=== PATIENT | female | born 1945 | race Caucasian/White ===

== ENCOUNTER 2019-12-26 17:06 | Inpatient (IN) | payer OTHER ==
[2019-12-26] MEDS ORDERED: AZITHROMYCIN IV 500 MG in NA CHLORIDE 0.9% 250 ML IVPB ONE (18:00)
[2019-12-26 18:23] VITALS: BMI 19.4
[2019-12-26] MEDS: NA CHLORIDE 0.9% 1,000 ML IV SCH (19:00)
[2019-12-26] MEDS: CEFTRIAXONE/SWI 1gm 1 GM/10 ML SYR IVP SCH (19:00)
[2019-12-26] MEDS ORDERED: PNEUMOCOCCAL VACCINE 0.5 ML IMVAC ONE (20:00)
[2019-12-26] MEDS ORDERED: ENOXAPARIN 40 MG/0.4 ML SQ ONE (20:09)
[2019-12-26] MEDS: gemfibroziL 600 MG TAB PO SCH (20:31)
[2019-12-26] MEDS: AMLODIPINE 5 MG TAB PO SCH (20:31)
[2019-12-26] MEDS: GUAIFENESIN/CODEINE 5ML UCUP PO PRN (22:33)
--- NOTE | 2019-12-27 01:55 | HP ---
Date of Admission: 12/26/2019 Chief Complaint: Feeling weak. History Of Present Illness: This is a 74-year-old very pleasant female patient who came into office yesterday with her and reported that on December 06, 2019, she started to have fever, chills, poor appetite, and [facility] as her condition got worse on December 11, 2019. Her temperature at that time was 103 degrees Fahrenheit. She had a negative urinalysis done at [facility] and she was sent to hospital for CBC and chemistry profile and mono test. All the test came back negative except her white blood cell count was 15, and she was prescribed cephalexin 500 mg 3 times a day for 10 days by physician from [facility] and she took it for about 7 days and stopped taking it because of side effect of nausea, vomiting, and diarrhea. After she stopped the antibiotic, the side effects resolved. Patient denies any more fever, but continues to feel really tired and having some dry cough. She feels short of breath when she does any exertion. After I evaluated her yesterday at the office, I was concerned about possibility of pneumonia on basis of clinical exam, so outpatient blood work and chest x-ray was done yesterday, and today, patient was admitted to hospital with left lower lobe pneumonia and white count was 17,000. I saw her this evening after her admission to the hospital. Her was with her at bedside. Allergies: ALLERGY TO SULFA CAUSING HIVES. CIPRO CAUSED SIDE EFFECT OF DIARRHEA. Review of Systems: Constitutional: As mentioned above. Respiratory: As mentioned above. All other systems reviewed and negative. Medications: List reviewed. 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 She had recurrence in 2003 and she is status post allogeneic stem cell transplant. Prior history of DVT of left arm in 1997, right leg in 2005; factor V Leiden deficiency. Past medical history also significant for depression. Past Surgical History: Cholecystectomy. Family History: Father had lung cancer. Mother; hypertension, hyperlipidemia. Sister with hypertension. Social History: Negative for smoking. Alcohol, she has 2 glasses of wine few times a week. Physical Examination: Vital Signs: Height 5 feet 7 inches, weight 124 pounds. Temperature 97.9, pulse 16, respiratory rate 16, blood pressure 127/71, oxygen saturation 97%. General: Awake, alert, oriented, not in distress. HEENT: Head atraumatic, normocephalic. Conjunctivae nonerythematous. Sclerae white. Mouth, no thrush or edema noted. Ears/Nose, no mass, lesion, discharge noted. Neck: Supple. No JVD, lymph nodes, bruit, thyromegaly noted. Lungs: Presence of diminished air entry in lower half of left lung field with some crackles. Heart: Normal heart sounds, no murmur or gallop. Abdomen: Soft, bowel sounds normal. No guarding, rigidity, tenderness, mass, hepatosplenomegaly, distention, or bruit noted. Extremities: No leg edema. No calf tenderness. Skin: No rash, ulcer, cellulitis. Lymphatics: No lymph node enlargement in neck, supraclavicular, infraclavicular region. Neuro: No focal neurological deficit. Chest: Unremarkable. External Genitalia: Deferred. Rectal: Deferred. Laboratory Data: Yesterday's chest x-ray shows moderate amount of pneumonia in left lower lobe. Yesterday, white count 17.2, hemoglobin 11.8, platelets 176. Sodium 136, potassium 4.1, chloride 100, bicarb 28, BUN 16, creatinine 0.84, glucose 181. SGOT 60, SGPT 71, alkaline phosphatase 150. Impression: 1. Pneumonia. 2. Anemia, unspecified. 3. Hypertension. 4. Abnormal liver function test. 5. Mixed hyperlipidemia. 6. Sleep-related leg cramps. 7. Gastroesophageal reflux disease. 8. Abnormal liver function test. 9. Impaired fasting glucose. 10. Depression. Plan: Admit patient to hospital for further evaluation and management of this problem. Patient is appropriate for inpatient and is expected to spend 2 midnights in hospital. Home medications will be continued per order. We will give DVT prophylaxis using Lovenox starting tonight. Patient will be given IV fluid and IV antibiotic, which is ceftriaxone and azithromycin. We will repeat blood work tomorrow morning. Repeat chest x-ray day after tomorrow and possible discharge to go home either on or Wednesday provided pneumonia shows improvement and depending on her overall clinical condition. Details and plan of treatment discussed with her. OMERO/ARVIND Voice ID: [id number] MTDD
[2019-12-27] MEDS: GUAIFENESIN/CODEINE 5ML UCUP PO PRN ×2 (03:50→20:51)
[2019-12-27 04:40] LABS: Absolute Lymphocytes (CBC) 1.5 K/uL (0.7-4.9); Basophils % 0.3 % (0-1.3); Hematocrit 30.8 % (36.0-45.0); Lymphocytes % 11.1 % (15.3-44.8); MPV 8.8 fL (7.6-11.3); RBC Red Blood Cell Count 3.18 M/uL (3.86-4.86)
[2019-12-27 04:58] LABS: BUN Blood Urea Nitrogen 12 mg/dL (7-18); Bicarbonate 30 mmol/L (21-32); Glucose Level 114 mg/dL (74-106); Magnesium 2.2 mg/dL (1.8-2.4); Potassium 3.7 mmol/L (3.5-5.1); Sodium Level 138 mmol/L (136-145)
[2019-12-27] MEDS: LEVOTHYROXINE SOD 0.05 MG TABLET PO SCH (05:11)
[2019-12-27] MEDS: AMLODIPINE 5 MG TAB PO SCH ×3 (08:11→20:52)
[2019-12-27] MEDS: CEFTRIAXONE/SWI 1gm 1 GM/10 ML SYR IVP SCH ×2 (08:13→20:51)
[2019-12-27] MEDS: NA CHLORIDE 0.9% 1,000 ML IV SCH ×2 (08:13→20:53)
[2019-12-27] MEDS: gemfibroziL 600 MG TAB PO SCH ×2 (08:15→20:51)
[2019-12-27] MEDS: BENZONATATE 100 MG CAP PO PRN ×2 (12:28→18:52)
[2019-12-27] MEDS: ENOXAPARIN 40 MG/0.4 ML SQ SCH (16:04)
[2019-12-28] MEDS: LOPERAMIDE HCL 2 MG CAPSULE PO PRN ×4 (00:05→18:00)
[2019-12-28] MEDS: BENZONATATE 100 MG CAP PO PRN ×3 (00:05→20:44)
[2019-12-28] MEDS: GUAIFENESIN/CODEINE 5ML UCUP PO PRN ×2 (04:28→13:12)
[2019-12-28] MEDS: LEVOTHYROXINE SOD 0.05 MG TABLET PO SCH (06:22)
--- NOTE | 2019-12-28 08:35 | RAD REPORT ---
EXAM DESCRIPTION: Odilon Pa And Lat (2 Views)12/28/2019 8:25 am CLINICAL HISTORY: Cough COMPARISON: December 25, 2019 FINDINGS: No significant change in the mid and lower opacity left hemithorax with volume loss. The right lung appears clear. Heart is normal size IMPRESSION: No significant change in the left hemithorax opacity. Most of this likely represents lef t lower lobe atelectasis. There may be a component of pneumonia/mass as well. CT chest would be helpf ul for further evaluation
[2019-12-28] MEDS: AMLODIPINE 5 MG TAB PO SCH ×2 (09:30→20:45)
[2019-12-28] MEDS: gemfibroziL 600 MG TAB PO SCH ×2 (09:30→20:44)
[2019-12-28] MEDS: CEFTRIAXONE/SWI 1gm 1 GM/10 ML SYR IVP SCH ×2 (09:30→20:43)
[2019-12-28] MEDS: NA CHLORIDE 0.9% 1,000 ML IV SCH (09:30)
--- NOTE | 2019-12-28 10:34 | PN ---
Date of Progress Note: 12/27/2019 Subjective: Patient was seen in the morning for followup. She had a lot of cough all day and during nighttime, but the last hour or so prior to my arrival to see her in the morning, her cough got bett er. She is afraid of some diarrhea as she normally gets diarrhea with antibiotic use. She has signi ficant generalized weakness sitting in the bed to try to examine her. She required assistance. Objective: Vital Signs: Reviewed. HEENT: Unremarkable. Lungs: Right-side clear to auscultation except minimum basal rales. Left side has some rales noted in the left lower lung region. Decreased air entry in lower half of the left lung field unchanged fr om yesterday. Heart: Sounds normal. Abdomen: Soft. Bowel sounds normal. No guarding, rigidity, tenderness, or distention. Extremities: No leg edema. Laboratory Data: Reviewed. White count is down to 13,000 from 17,000. The rest of the CBC and chem istry results reviewed. Impression: 1.Pneumonia. 2.Hypertension. 3.Generalized weakness. Plan: We will go ahead and continue current antibiotics. Consult Physical Therapy to help ambulate the patient. Continue current medication, which is Robitussin AC per order and we will add Tessalon. We will repeat chest x-ray tomorrow. Depending on chest x-ray results and the patient's condition, we will decide if she is ready for discharge tomorrow or not, but if not tomorrow, it should probably happen in the next couple of days. OMERO/MODL Voice ID: [id number] Report ID: [id number]
--- NOTE | 2019-12-28 11:17 | RAD REPORT ---
EXAM DESCRIPTION: CT - Thorax Wo Con - 12/28/2019 9:53 am CLINICAL HISTORY: Pneumonia COMPARISON: December 28 and December 25 chest examinations TECHNIQUE: Axial 5 mm thick images of the chest were obtained without IV contrast. All CT scans are performed using dose optimization technique as appropriate and may include automated exposure control or mA/KV adjustment according to patient size. FINDINGS: Right lung field is clear of mass or infiltrate. Right lung field is hyper expanded. Infil trate and/ or partial atelectasis changes are present along the posterior aspect of the left upper lo be. There is complete opacification of the left lower lobe. Left lower lobe bronchial tree is occlude d by mucous or inflammatory debris. No air bronchograms in the left lower lobe. No large left pleural effusion. No right pleural fluid. No pleural based mass. No pneumothorax. No abnormal mediastinal or hilar masses or lymphadenopathy seen. No gross aortic or pulmonary artery finding suspected. Assessment is limited in the absence of IV contrast. No pericardial thickening or effusion. No chest wall mass or abnormal axillary lymphadenopathy. IMPRESSION: There is complete opacification of the left lower lobe including the bronchial tree. Thi s is most typically pneumonia with mucus and inflammatory debris filling the bronchial tree. An occul t malignant process is not excluded and continued follow-up is needed until clearing. Partial atelectasis of the left upper lobe. There is questionable very minimal left upper lobe infilt rate. Right lung field is clear. There is hyperexpansion of the right hemithorax along with a right to left mediastinal shift due to the left-side volume loss changes. No mediastinal or hilar mass is suspected. Left hilum is partially obscured by the left lower lobe op acification.
[2019-12-28] MEDS ORDERED: AZITHROMYCIN IV 500 MG in NA CHLORIDE 0.9% 250 ML IVPB ONE (15:00)
[2019-12-28] MEDS: ALBUTEROL 2.5 MG/3 ML NEB SOL NEB SCH ×2 (15:05→19:53)
[2019-12-28] MEDS: ENOXAPARIN 40 MG/0.4 ML SQ SCH (18:00)
--- NOTE | 2019-12-28 23:46 | PN ---
Date of Progress Note: 12/28/2019 Subjective: Patient was seen this morning for followup. She was feeling better today than yesterday . She did ambulate yesterday. Appetite is improving. She still has lot of weakness, but overall sh e has improved in last 24 hours. Objective: Vital Signs: Reviewed. HEENT: Unremarkable. Lungs: Clear to auscultation to right side; left side, diminished to absent breath sounds in lower h lisa of left lung field. Not using accessory muscles of respiration. Heart: Heart sounds normal. Abdomen: Soft, bowel sounds normal. No guarding, rigidity, tenderness, or distention. Extremities: No leg edema. Laboratory Data: Chest x-ray done today shows pneumonia in left lower lobe with pleural effusion. C AT scan of the chest was done per recommendation from radiologist to rule out any underlying lung mas s and it does show consolidation in left lower lung consistent with pneumonia and air bronchogram and pleural effusion. There is no evidence of any definite mass. Impression: 1.Pneumonia. 2.Hypertension. Plan: We will go ahead and continue ceftriaxone. The patient received 1 dose of azithromycin day be fore yesterday, but upon further review, it appears that she did not receive dose yesterday, so I hav e ordered azithromycin 500 mg IV today and then 250 mg IV daily from tomorrow. We will go ahead and continue current dose of ceftriaxone. I have ordered nebulizer treatment with albuterol and chest pe rcussion with nebulizer treatment. Continue Lovenox for DVT prophylaxis and I will see her tomorrow for follo wup. OMERO/MODL Voice ID: [id number] Report ID: [id number]
[2019-12-29] MEDS: LOPERAMIDE HCL 2 MG CAPSULE PO PRN ×3 (01:46→15:16)
[2019-12-29] MEDS: BENZONATATE 100 MG CAP PO PRN ×2 (01:47→09:38)
[2019-12-29] MEDS: ALBUTEROL 2.5 MG/3 ML NEB SOL NEB SCH ×4 (02:10→20:52)
[2019-12-29] MEDS: LEVOTHYROXINE SOD 0.05 MG TABLET PO SCH (06:38)
[2019-12-29 07:37] LABS: Absolute Lymphocytes (CBC) 1.3 K/uL (0.7-4.9); Basophils % 0.7 % (0-1.3); Hematocrit 30.7 % (36.0-45.0); Lymphocytes % 12.2 % (15.3-44.8); MPV 8.4 fL (7.6-11.3); RBC Red Blood Cell Count 3.13 M/uL (3.86-4.86)
[2019-12-29 07:47] LABS: BUN Blood Urea Nitrogen 8 mg/dL (7-18); Bicarbonate 30 mmol/L (21-32); Glucose Level 118 mg/dL (74-106); Magnesium 2.2 mg/dL (1.8-2.4); Potassium 3.1 mmol/L (3.5-5.1); Sodium Level 140 mmol/L (136-145)
[2019-12-29] MEDS: AZITHROMYCIN IV 250 MG in NA CHLORIDE 0.9% 250 ML IVPB SCH (09:00)
[2019-12-29] MEDS: AMLODIPINE 5 MG TAB PO SCH ×2 (09:37→20:29)
[2019-12-29] MEDS: gemfibroziL 600 MG TAB PO SCH ×2 (09:37→20:29)
[2019-12-29] MEDS: POTASSIUM CL SA 10 MEQ TAB PO SCH ×2 (09:37→20:29)
[2019-12-29] MEDS: CEFTRIAXONE/SWI 1gm 1 GM/10 ML SYR IVP SCH ×2 (09:38→20:28)
--- NOTE | 2019-12-29 14:39 | PN ---
Date of Progress Note: 12/29/2019 Subjective: She was noted to be ambulating in the hallway. She was a little unsteady on her feet wh ile she was walking with her , but overall feels a lot better today than last few days. Still has little diarrhea, which is well controlled with p.r.n. use of Imodium. Objective: Vital Signs: Reviewed. HEENT: Unremarkable. Lungs: Clear to auscultation on the right side. Left side diminished air entry in the left lower roxanne ng field with some crackles. This has improved on today's examination. Heart: Sounds normal. Abdomen: Soft. Bowel sounds normal. No guarding, rigidity, tenderness, or distention. Extremities: No leg edema. Laboratory Data: White count 10.4, hemoglobin 10.5 platelets 131. Sodium 140, potassium 3.1, chlori de 104, bicarb 30, BUN 8, creatinine 0.54, glucose 118, magnesium 2.2. Impression: 1.Pneumonia. 2.Hypokalemia. 3.Anemia. 4.Hypertension. Plan: We will continue current antibiotic which is ceftriaxone and azithromycin, nebulizer treatment , chest percussion. Replace potassium per order, and we will repeat potassium level tomorrow. We will repeat chest x-ray tomorrow and possible discharge to go home tomorrow depending on patient's co ndition and chest x-ray result. OMERO/MODL Voice ID: [id number] Report ID: [id number]
[2019-12-29] MEDS: ENOXAPARIN 40 MG/0.4 ML SQ SCH (18:12)
[2019-12-30] MEDS: ALBUTEROL 2.5 MG/3 ML NEB SOL NEB SCH ×2 (02:20→08:00)
[2019-12-30] MEDS: LEVOTHYROXINE SOD 0.05 MG TABLET PO SCH (05:18)
[2019-12-30] MEDS: AZITHROMYCIN IV 250 MG in NA CHLORIDE 0.9% 250 ML IVPB SCH (08:42)
[2019-12-30] MEDS: CEFTRIAXONE/SWI 1gm 1 GM/10 ML SYR IVP SCH (08:43)
[2019-12-30] MEDS: POTASSIUM CL SA 10 MEQ TAB PO SCH (08:43)
[2019-12-30] MEDS: gemfibroziL 600 MG TAB PO SCH (08:43)
[2019-12-30] MEDS: AMLODIPINE 5 MG TAB PO SCH (08:44)
[2019-12-30 08:45] VITALS: BP 108/71
[2019-12-30 08:46] VITALS: TEMP 97.9
[2019-12-30 10:49] VITALS: O2SAT 94
--- NOTE | 2019-12-30 11:55 | RAD REPORT ---
EXAM DESCRIPTION: RAD - Chest Pa And Lat (2 Views) - 12/30/2019 8:08 am CLINICAL HISTORY: pneumonia Chest pain. COMPARISON: Chest Pa And Lat (2 Views) dated 12/28/2019; Chest Pa And Lat (2 Views) dated 12/25/2019; Thorax Wo Con dated 12/28/2019 FINDINGS: Little overall change is seen in the medial left lower lobe atelectasis and consolidated l moose since prior study. The right lung is clear. The heart is upper limit normal in size. No displaced fractures. IMPRESSION: No significant change is seen since comparative study.
--- NOTE | 2019-12-31 04:11 | DS ---
Date of Discharge: 12/30/2019 Subjective: Patient was seen this morning for followup. She was sitting in chair, feeling much bett er. Denies any shortness of breath. Ambulates well. Has a good appetite. Diarrhea is under good c ontrol. Objective: Vital Signs: Reviewed. HEENT: Unremarkable. Lungs: Clear to auscultation on the right side. Left side air entry is much better than few days ag o. No rales present. Still some area of diminished air entry in the left lung base, but overall muc h better than before. Heart: Sounds normal. Abdomen: Soft. Bowel sounds normal. No guarding, rigidity, tenderness, distention. Extremities: No leg edema. Discharge Medications And Instructions: 1.Continue prior home medication. 2.Check your blood pressure before it is time to take amlodipine and if your systolic blood pressure , which is top number, less than 130, then do not take dose at that particular time. 3.Take cefuroxime 250 mg 2 times a day for 1 week and azithromycin 250 mg p.o. daily for 1 week, muriel e it with food. 4.May take pohl-mau-mwzhkcc medication Imodium 1 tablet by mouth 4 times a day as needed for diarrhe a. 5.Follow up at my office on 01/04/2020 and patient to get a chest x-ray done at hospital on outpatie nt basis on 01/03/2020. Hospital Course: 74-year-old pleasant female patient admitted to the hospital with pneumonia problem . Please see dictated H and P for more information. Patient had outpatient chest x-ray and blood wo rk done. Chest x-ray showed left lower lobe pneumonia. Blood work showed white count 17.2. She had about a week of oral antibiotic cephalexin, which was prescribed to [facility] from [facility] for elevated white count of 14,000 to 15,000, fever, but no chest x-ray was done through [facility], so this is the first chest x-ray we have for this diagnosis of pneumonia, and clinically, she was not doing well with elevated white count and this left lower lobe pneumonia, so decision was made to admit her to hospital for inpatient care. After she was admitted to the hospital, she was started o n IV antibiotic, which was ceftriaxone and azithromycin, and subsequently we added nebulizer treatmen t with chest percussion. With combination of all this treatment, her condition improved significantl y. She started to ambulate well. Weakness problem has improved. She has had some diarrhea with ant ibiotic, responded well to Imodium, and she was advised to eat yogurt with each meal, which she is do ing it. CAT scan of the chest was done, which revealed consolidation in left lower lobe with some ai r bronchogram, but no evidence of any pulmonary mass. So, overall, her condition has improved now an d she will be discharged to go home in stable condition today with above-mentioned medications and in structions. Final Diagnoses: 1.Pneumonia. 2.Anemia, unspecified. 3.Hypertension. 4.Abnormal liver function test. 5.Mixed hyperlipidemia. 6.Sleep-related leg cramps. 7.Gastroesophageal reflux disease. 8.Impaired fasting glucose. 9.Depression. 10.Thrombocytopenia. 11.Hypokalemia. Laboratory Data: Day after admission to the hospital on 12/27/2019, white count was 13.7, hemoglobin 10.4, platelets 135. Yesterday, white count 10.4, hemoglobin 10.5, platelets 131. Yesterday, sodiu m 140, potassium 3.1, chloride 104, bicarb 30, BUN 8, creatinine 0.54, glucose 118. Potassium was co rrected and repeat potassium this morning is 3.7. OMERO/MODL Voice ID: [id number] Report ID: [id number]
== END 2019-12-30 11:20 | disposition home or self-care (01) | DRG 195 ==
LOC: 4TH 17:06
PROVIDERS: ADMIT Internal Medicine; ATTEND Internal Medicine
DX: J18.9 Pneumonia, unspecified organism (principal); D64.9 Anemia, unspecified; I10 Essential (primary) hypertension; E87.6 Hypokalemia; E03.9 Hypothyroidism, unspecified; R73.01 Impaired fasting glucose; E78.2 Mixed hyperlipidemia; K21.9 Gastro-esophageal reflux disease without esophagitis; D69.6 Thrombocytopenia, unspecified; R94.5 Abnormal results of liver function studies; G47.62 Sleep related leg cramps; F32.9 Major depressive disorder, single episode, unspecified
CPT/HCPCS: 36415; 71046; 71250; 80048; 80053; 83735; 84132; 85025; 94640; 97116; 97161; 97530; J0456; J0696; J1650; J7030

== ENCOUNTER 2022-11-13 17:16 | Inpatient (IN) | payer OTHER ==
--- OUTSIDE RECORDS SUMMARY | 2022-11-13 17:19 | XMS REPORT | Continuity of Care Document ---
:[address] [facility] t Address [address] [place] [address] Care Team Providers Name Role Phone [phone] Primary Care Physician Unavailable SYSTEM, PROVIDER NOT IN Attending Clinician Unavailable ANDIE ROME, PHD Attending Clinician Unavailable EMERSON TREJO M.D. Attending Clinician Unavailable Problems Condition Condition Condition Status Onset Resolution Last Treating Co mments Source Name Details Category Date Date Treatment Clinician Date Depression Depression Problem Active U T , major, , major, Physic i in partial in partial an s remission remission Insomnia Insomnia Problem Active [facility] ans History of History of Problem Resolve [facility] Benign Benign d [facility]ici colon colon ans polyp polyp History of History of Problem Resolve [facility] Mammogram Mammogram d Phys ici normal normal ans History of History of Problem Resolve [facility] Menarche Menarche d Physic i ans History of History of Problem Resolve [facility] menopause menopause d Phys ici ans Hyperchole Hyperchole Problem Active U T sterolemia sterolemia Ph ysici ans Essential Essential Problem Active [facility] hypertensi hypertensi Ph ysici on on ans Hypothyroi Hypothyroi Problem Active [facility] T dism dism Physici ans SIM SIM Problem Active UT (generaliz (generaliz Ph ysici ed anxiety ed anxiety an s disorder) disorder) Grief Grief Problem Active [facility] reaction reaction Physic i ans Allergies, Adverse Reactions, Alerts Allergy Allergy Status Severity Reaction(s) Onset Inactive Treating Comm ents Source Name Type Date Date Clinician Sulfa Allergy Active [facility] Drugs to drug Physici (finding ans ) Family History Family Member Diagnosis Comments Start Date Stop Date Source Mother Family history of High [facility] blood pressure Mother Family history of [facility] hypercholesterolemia Mother Family history of Cancer [facility] Father Family history of High [facility] blood pressure Father Family history of [facility] hypercholesterolemia Father Family history of Heart [facility] disease Sister Family history of [facility] hypercholesterolemia Social History Smoking Status Start Date Stop Date Source Ex-smoker (finding) [facility] Medications Ordered Filled Start Stop Current Ordering Indication Dosage Frequency Signature Comments Components Source Medication Medication Date Date Medication? Clinician (SIG) Name Name amLODIPine amLODIPine Yes TAKE U T Besylate 5 Besylate 5 4-24 2TABLET Physici MG Oral MG Oral 00:00: DAILY ans Tablet Tablet 00 DIRECTED. Carvedilol Carvedilol Yes Q0.5D TAKE 1 UT 6.25 MG 6.25 MG 4-24 TABLET Physici Oral Tablet Oral Tablet 00:00: TWICE ans 00 DAILY WITH MEALS. Crestor 5 Crestor 5 Yes 1 QD TAKE 1 U T MG Oral MG Oral 4-24 TABLET Physici Tablet Tablet 00:00: DAILY. ans 00 Gemfibrozil Gemfibrozil Yes UT 600 MG Oral 600 MG Oral 4-24 P hysici Tablet Tablet 00:00: ans 00 Levothyroxi Levothyroxi Yes 1 Q0.5D TAKE 1 UT ne Sodium ne Sodium 4-24 TABLET Phy sici 50 MCG Oral 50 MCG Oral 00:00: TWICE ans Tablet Tablet 00 DAILY Zolpidem Zolpidem Yes POURAN TAKE 1 U T Tartrate 5 Tartrate 5 4-24 NEIL TABLET BY Phys[facility] MG Oral MG Oral 00:00: M.D. MOUTH AT ans Tablet Tablet 00 BEDTIME NEEDED. AVOID TAKING EVERY SINGLE NIGHT Immunizations Ordered Immunization Filled Immunization Date Status Commen ts Source Name Name Influenza, high dose 2018-08-31 Completed [facility] seasonal, 00:00:00 preservative-free Hepatitis B, adult 2010-06-30 Completed [facility] 00:00:00 Hepatitis B, adult 2010-01-27 Completed [facility] 00:00:00 Hepatitis B, adult 2009-10-28 Completed [facility] 00:00:00 Td (adult), adsorbed 2009-10-28 Completed [facility] tetanus and diphtheria 00:00:00 toxoids Pneumococcal 2009-10-28 Completed [facility] polysaccharide 00:00:00 vaccine, 23 valent Vital Signs Vital Name Observation Time Observation Value Comments Source BP Systolic 2019-08-07 10:47:00 148 mm[Hg] Location: E; [facility] Position: Sitting BP Diastolic 2019-08-07 10:47:00 79 mm[Hg] Location: LUE; [facility] Position: Sitting Height 2019-08-07 10:47:00 67.5 [in_us] [facility] Weight 2019-08-07 10:47:00 131 [lb_av] [facility] Body Mass Index 2019-08-07 10:47:00 20.21 kg/m2 [facility] Calculated Temperature 2019-08-07 10:47:00 97.6 [degF] Method: Oral [facility] Heart Rate 2019-08-07 10:47:00 73 /min Location: [facility] Apical; BP Systolic 2018-03-22 10:46:00 176 mm[Hg] Location: LUE; [facility] Position: Sitting BP Diastolic 2018-03-22 10:46:00 94 mm[Hg] Location: LUE; [facility] Position: Sitting Height 2018-03-22 10:46:00 67.5 [in_us] [facility] Weight 2018-03-22 10:46:00 140 [lb_av] [facility] Body Mass Index 2018-03-22 10:46:00 21.6 kg/m2 [facility] Calculated Temperature 2018-03-22 10:46:00 98.2 [degF] Method: Oral [facility] Heart Rate 2018-03-22 10:46:00 73 /min Location: [facility] Apical; Procedures Procedure Date / Time Performed Performing Clinician [facility] e History of Complete 2016-05-14 00:00:00 [facility] colonoscopy Encounters Start End Encounter Admission Attending Care Care Encounter Source Date/Time Date/Time Type Type Clinicians Facility Department ID 2021-07-06 Outpatient SYSTEM, [facility] [id number] 13:26:33 PROVIDER Mamadou o n 2019-12-07 2019-12-07 [facility] [id number] [place] 09:30:00 09:30:00 t; ANDIE ROME, PHD Outpatient Mani [facility]AVES, Clinic - ans PHD [facility] 2019-08-07 2019-08-07 [facility] [id number] [place] 11:30:00 11:30:00 t; ANDIE ROME, PHD Outpatient Mani CHAVES, Clinic - ans PHD [facility] 2019-08-07 2019-08-07 [facility] Mult[facility] [id number] [place] 10:30:00 10:30:00 t; luis NORMAN - Sanjeev Monson i, M.D. 2019-05-09 2019-05-09 [facility] [id number] [place] 11:30:00 11:30:00 t; ANDIE ROME, PHD [facility] Physicchitra CHAVES, [facility] PHD [facility]BS[facility] 2019-02-16 2019-02-16 [facility] Psych[facility] [id number] [place] 11:30:00 11:30:00 t; ANDIE ROME, PHD Physicchitra CHAVES, [facility] PHD 2018-12-09 2018-12-09 [facility] Psychiatry [id number] [place] 11:30:00 11:30:00 t; ANDIE ROME, PHD Physicchitra CHAVES, [facility] PHD 2018-09-22 2018-09-22 [facility] Psychiatry [id number] [place] 11:30:00 11:30:00 t; ANDIE ROME, PHD Physici ANDIE, ans PHD 2018-08-22 2018-08-22 [facility] Psychiatry [id number] [place] 15:00:00 15:00:00 t; ANDIE ROME, PHD Physici ANDIE, [facility] PHD 2018-05-11 2018-05-11 [facility] Psychiatry [id number] [place] 13:00:00 13:00:00 t; ANDIE ROME, PHD Physici ANDIE, ans PHD 2018-05-03 [facility] [id number] [place] 11:30:00 11:30:00 t; ANDIE ROME, PHD Physicchitra CHAVES, ans PHD 2018-04-26 2018-04-26 [facility] [id number] [place] 11:30:00 11:30:00 t; ANDIE ROME, PHD Physici ANDIE, ans PHD 2018-04-13 2018[facility]04-13 [facility] Psych[facility] [id number] [place] 10:30:00 10:30:00 t; ANDIE ROME, PHD Physicchitra CHAVES, ans PHD 2018-03-22 2018-03-22 Appointmen [facility] TREJO Francoise [id number] [place] 10:15:00 10:15:00 oumar; Chichi NORMAN i, M.D. ans POURAN, M.D. Results Test Description Test Time Test Comments Results Result Comments Source Tobacco Use Screening 2018-03-22 10:15:00 Test Item Value Reference Range Interpretation Comme nts Completed (test code = Completed) DONE [facility]
[2022-11-13] MEDS ORDERED: NA CHLORIDE 0.9% 1,000 ML ONE ×3 (17:38→19:46)
[2022-11-13 17:52] LABS: Hematocrit 35.3 % (36.0-45.0); Lymphocytes % 5.4 % (15.3-44.8); MCV 97.9 fL (80-100); MPV 7.6 fL (7.6-11.3)
[2022-11-13 18:03] LABS: Albumin 2.3 g/dL (3.4-5.0); Magnesium 2.1 mg/dL (1.6-2.4); Potassium 3.5 mmol/L (3.5-5.1)
[2022-11-13 18:17] LABS: Bilirubin Total 0.9 mg/dL (0.2-1.0); Protein, Total 7.5 g/dL (6.4-8.2); Thyroid Stimulating Hormone 1.29 uIU/mL (0.358-3.740)
--- NOTE | 2022-11-13 18:34 | RAD REPORT ---
EXAM DESCRIPTION: RAD - Chest Single View - 11/13/2022 6:27 pm CLINICAL HISTORY: COUGH Chest pain. COMPARISON: Chest Pa And Lat (2 Views) dated 11/10/2022; Chest Pa And Lat (2 Views) dated 03/07/2020; Chest Pa And Lat (2 Views) dated 01/31/2020; Chest Pa And Lat (2 Views) dated 01/17/2020; Thorax Wo Con dated 08/26/2022 FINDINGS: Portable technique limits examination quality. Left lung volume loss is seen with significant scarring present. Mild shift of the cardiomediastinal structures of left present. Hazy opacity is present in the left mid lung which could represent mild i nfiltrate. Right lung is grossly clear. The heart is mildly enlarged in size.
--- NOTE | 2022-11-13 19:34 | RAD REPORT ---
EXAM DESCRIPTION: CTAbdomen Pelvis W Contrast - 11/13/2022 7:08 pm CLINICAL HISTORY: Abdominal pain. Nausea/vomiting COMPARISON: 3D SCR DOYLE BILAT W/CAD dated 08/12/2022; Thorax Wo Con dated 08/26/2022 TECHNIQUE: Biphasic CT imaging of the abdomen and pelvis was performed with 100 ml non-ionic IV cont rast. All CT scans are performed using dose optimization technique as appropriate and may include automated exposure control or mA/KV adjustment according to patient size. FINDINGS: There is evidence of a large area of lung consolidation with internal necrosis or cavitati on in the left lower lobe. Presumably this represents infection/pneumonia.Trace left pleural fluid. The liver is prominent in size with a mild nodular contour suggesting cirrhosis. Spleen is normal siz ed. The pancreas, adrenal glands and kidneys are within normal limits. No bowel obstruction, free air, free fluid or abscess. Moderate stool is present throughout the colon . The appendix is normal. No evidence of significant lymphadenopathy. No suspicious bony findings. IMPRESSION: Posterior moderate to large sized left lower lobe pneumonia is present. 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
--- NOTE | 2022-11-13 19:36 | EDPHYS ---
Physician Documentation [facility] Name: Dasha Marie Age: 77 yrs Sex: Female : 1945 Arrival Date: 11/13/2022 Time: 17:20 Bed 6 Private MD: FRAN Physician Modesto Carlton HPI: 11/13 17:45 This 77 yrs old Female presents to ER via Wheelchair with complaints of Weakness. rt 17:45 The patient presents to the emergency department with weakness of the entire body, rt generalized weakness, that is moderate. Onset: The symptoms/episode began/occurred gradually, 1 week(s) ago. Associated signs and symptoms: Pertinent positives: NVD. Severity of symptoms: At their worst the symptoms were moderate. She presents to the ED with generalized weakness. She was started on Augmentin1 week ago for a sinus congestion. Since then, she states that she felt worse, having nausea, vomiting, diarrhea. The patient reports a dry mouth. Denies abdominal pain, other acute complaints. Patient states that she fell due to this generalized weakness but did not hit her head. Symptoms are moderate in severity, no other aggravating or alleviating factors.. Historical: - Allergies: 17:35 Sulfa (Sulfonamide Antibiotics); kb3 - PMHx: 17:35 Lymphoma; Bone marrow transplant; Scleraderma; Collapsed lung; Hypercholesterolemia; kb3 Hypertensive disorder; - PSHx: 17:35 Tonsillectomy; Cholecystectomy; kb3 - Immunization history:: Adult Immunizations up to date, Client reports receiving the 2nd dose of the Covid vaccine. - Social history:: Smoking status: Patient denies any tobacco usage or history of. - Family history:: not pertinent. ROS: 17:45 Eyes: Negative for injury, pain, redness, and discharge, ENT: Negative for injury, rt pain, and discharge, Neck: Negative for injury, pain, and swelling, Cardiovascular: Negative for chest pain, palpitations, and edema, Respiratory: Negative for shortness of breath, cough, wheezing, and pleuritic chest pain, Back: Negative for injury and pain, MS/Extremity: Negative for injury and deformity, Skin: Negative for injury, rash, and discoloration, Psych: Negative for depression, anxiety, suicide ideation, homicidal ideation, and hallucinations. 17:45 Constitutional: Positive for fatigue, malaise. 17:45 Abdomen/GI: Positive for nausea and vomiting, nausea, vomiting, and diarrhea, Negative for abdominal pain. 17:45 Neuro: Positive for weakness, Negative for altered mental status. Exam: 17:45 Constitutional: This is a well developed, well nourished patient who is awake, alert, rt and in no acute distress. Head/Face: Normocephalic, atraumatic. ENT: Nares patent. No nasal discharge, no septal abnormalities noted. Tympanic membranes are normal and external auditory canals are clear. Oropharynx with no redness, swelling, or masses, exudates, or evidence of obstruction, uvula midline. Mucous membranes moist. Neck: Trachea midline, no thyromegaly or masses palpated, and no cervical lymphadenopathy. Supple, full range of motion without nuchal rigidity, or vertebral point tenderness. No Meningismus. Chest/axilla: Normal chest wall appearance and motion. Nontender with no deformity. No lesions are appreciated. Cardiovascular: Regular rate and rhythm with a normal S1 and S2. No gallops, murmurs, or rubs. Normal PMI, no JVD. No pulse deficits. Respiratory: Lungs have equal breath sounds bilaterally, clear to auscultation and percussion. No rales, rhonchi or wheezes noted. No increased work of breathing, no retractions or nasal flaring. Abdomen/GI: Soft, non-tender, with normal bowel sounds. No distension or tympany. No guarding or rebound. No evidence of tenderness throughout. Skin: Warm, dry with normal turgor. Normal color with no rashes, no lesions, and no evidence of cellulitis. MS/ Extremity: Pulses equal, no cyanosis. Neurovascular intact. Full, normal range of motion. Neuro: Awake and alert, GCS 15, oriented to person, place, time, and situation. Cranial nerves II-XII grossly intact. Motor strength 5/5 in all extremities. Sensory grossly intact. Cerebellar exam normal. Normal gait. Psych: Awake, alert, with orientation to person, place and time. Behavior, mood, and affect are within normal limits. 17:45 ENT: Dry mucous membranes, OP otherwise unremarkable. 17:55 ECG was reviewed by the Attending Physician. rt Vital Signs: 17:32 BP 134 / 82; Pulse 93; Resp 20; Temp 98.1; Pulse Ox 93% ; Weight 58.97 kg; Height 5 ft. kb3 7 in. (170.18 cm); Pain 0/10; 18:38 BP 123 / 73; Pulse 85; Resp 15; Pulse Ox 99% on R/A; hb 19:20 BP 121 / 75; Pulse 82; Resp 18 S; Pulse Ox 98% on R/A; ha1 20:20 BP 122 / 76; Pulse 82; Resp 18 S; Pulse Ox 98% on R/A; ha1 22:20 BP 124 / 78; Pulse 85; Resp 16 S; Pulse Ox 98% on R/A; ha1 23:20 BP 125 / 76; Pulse 85; Resp 18 S; Pulse Ox 98% on R/A; ha1 17:32 Body Mass Index 20.36 (58.97 kg, 170.18 cm) kb3 MDM: 17:29 Patient medically screened. rt 19:37 Data reviewed: vital signs, nurses notes, lab test result(s), EKG, radiologic studies, mayte CT scan. Data interpreted: air sampling and monitoring: rate is 85 beats/min, rhythm is regular, Pulse oximetry: on room air is 99 %. Test interpretation: by ED physician or midlevel provider: ECG, plain radiologic studies. Counseling: I had a detailed discussion with the patient and/or guardian regarding: the historical points, exam findings, and any diagnostic results supporting the discharge/admit diagnosis, lab results, radiology results, the need for further work-up and treatment in the hospital. 11/13 17:30 Order name: CBC with Diff; Complete Time: 18:36 rt 11/13 17:30 Order name: CMP; Complete Time: 18:36 rt 11/13 17:30 Order name: Magnesium; Complete Time: 18:36 rt 11/13 17:30 Order name: UA MICROSCOPIC rt 11/13 17:30 Order name: TSH; Complete Time: 18:36 rt 11/13 17:30 Order name: Lipase; Complete Time: 18:36 rt 11/13 19:29 Order name: Basic Metabolic Panel [facility] 11/13 19:29 Order name: LFT's [facility] 11/13 19:29 Order name: NT PRO-BNP [facility] 11/13 19:29 Order name: PT-INR [facility] 11/13 19:29 Order name: Troponin HS [facility] 11/13 19:29 Order name: Stool Culture [facility] 11/13 19:29 Order name: Fecal Leukocyte Stain [facility] 11/13 19:29 Order name: Rotavirus Antigen [facility] 11/13 17:30 Order name: EKG; Complete Time: 17:31 rt 11/13 17:30 Order name: EKG - Nurse/Tech; Complete Time: 17:58 11/13 17:30 Order name: Chest Single View XRAY; Complete Time: 18:36 rt 11/13 18:43 Order name: CT Abd/Pelvis - IV Contrast Only; Complete Time: 19:36 11/13 19:29 Order name: CT Chest Wo Con; Complete Time: 20:10 [facility] 11/13 19:31 Order name: Blood Culture Adult (2) [facility] 11/13 19:31 Order name: Lactate w/ 2H reflex if indic. [facility] 11/13 19:31 Order name: Urine Culture [facility] 11/13 19:48 Order name: COVID-19/FLU A+B [facility] 11/13 19:29 Order name: Cardiac monitoring; Complete Time: 19:36 [facility] 11/13 19:29 Order name: IV Saline Lock; Complete Time: 19:36 [facility] 11/13 19:29 Order name: Labs collected and sent; Complete Time: 20:06 [facility] 11/13 19:29 Order name: O2 Per Protocol; Complete Time: 19:36 [facility] 11/13 19:29 Order name: O2 Sat Monitoring; Complete Time: 19:36 [facility] EC:55 Rate is 88 beats/min. Rhythm is regular, Normal Sinus Rhythm with No ectopy. Left axis rt deviation noted. DC interval is normal. QRS interval is normal. QT interval is normal. No Q waves. Interpreted by me. Administered Medications: 17:58 Drug: NS 0.9% 1000 ml Route: IV; Rate: 1 bolus; Site: right antecubital; hb 18:55 Follow up: Response: No adverse reaction; IV Status: Completed infusion; IV Intake: hb 1000ml 18:54 Drug: NS 0.9% 1000 ml Route: IV; Rate: 1 bolus; Site: right antecubital; hb 19:45 Follow up: Response: No adverse reaction; IV Status: Infusion continued; IV Intake: hb 1000ml 20:05 Drug: Pepcid (famotidine) 20 mg Route: IVP; Site: right antecubital; hb 22:11 Follow up: Response: No adverse reaction ha1 23:54 Follow up: Response: No adverse reaction ha1 20:06 Drug: levofloxacin 500 mg Volume: 100 ml; Route: IVPB; Infused Over: 60 mins; Site: hb right antecubital; 23:55 Follow up: Response: No adverse reaction; IV Status: Completed infusion; IV Intake: ha1 100ml 22:11 Drug: NS 0.9% 1000 ml Route: IV; Rate: 1 bolus; Site: right antecubital; ha1 23:54 Follow up: Response: No adverse reaction; IV Status: Completed infusion; IV Intake: ha1 1000ml 22:11 Drug: Zosyn (piperacillin-tazobactam) 3.375 grams Route: IVPB; Infused Over: 60 mins; ha1 Site: right antecubital; 23:54 Follow up: Response: No adverse reaction; IV Status: Infusion continued; IV Intake: [id number] 22:11 Drug: Xopenex (levalbuterol) 2.5 mg Route: Inhalation; ha1 23:53 Follow up: Response: No adverse reaction ha1 Disposition Summary: 11/13/22 19:35 Hospitalization Ordered Hospitalization Status: Inpatient Admission mayte Provider: Jake Bueno cha [facility] mayte Condition: Fair mayte Problem: new mayte Symptoms: have improved mayte Bed/Room Type: Standard [facility] Room Assignment: 224(11/13/22 21:40) jl7 Diagnosis - Fever, unspecified mayte - Diarrhea, unspecified mayte - Lobar pneumonia, unspecified organism mayte - Elevated white blood cell count mayte - Weakness mayte Forms: - Medication Reconciliation Form mayte - SBAR form mayte Signatures: Dispatcher [employer] Modesto Riddle MD MD cha Baxter, Heather RN RN hb Papito Wang RN RN jl7 Aysha De Leon RN RN ha1 Chioma Pichardo RN RN christiane3 Ana Trent PA-C PARios sb4 Pan Hunter MD MD rt Corrections: (The following items were deleted from the chart) 21:40 19:35 mayte jl7
--- NOTE | 2022-11-13 19:36 | ER ---
Nurse's Notes [facility] Name: Dasha Marie Age: 77 yrs Sex: Female : 1945 Arrival Date: 11/13/2022 Time: 17:20 Bed 6 Private MD: Diagnosis: Fever, unspecified;Diarrhea, unspecified;Lobar pneumonia, unspecified organism;Elevated white blood cell count;Weakness Presentation: 11/13 17:32 Chief complaint: Patient states: Pt reports cough/congestion x several days. Was seen kb3 by PCP 1 week ago, flu and covid negative, PCP started pt on Augmentin. Reports one day after starting abx, she began experiencing diarrhea and nausea with intermittent episodes of vomiting. Pt reports increasing weakness over the last 3 days. Coronavirus screen: Vaccine status: Patient reports receiving the 2nd dose of the covid vaccine. Client denies travel out of the [place] in the last 14 days. Ebola Screen: Patient negative for fever greater than or equal to 101.5 degrees Fahrenheit, and additional compatible Ebola Virus Disease symptoms Patient denies exposure to infectious person. Patient denies travel to an Ebola-affected area in the 21 days before illness onset. No acute neurological deficit is noted. Initial Sepsis Screen: Does the patient meet any 2 criteria? No. Patient's initial sepsis screen is negative. Does the patient have a suspected source of infection? No. Patient's initial sepsis screen is negative. Risk Assessment: Do you want to hurt yourself or someone else? Patient reports no desire to harm self or others. Onset of symptoms was November 09, 2022. 17:32 Method Of Arrival: Wheelchair kb3 17:32 Acuity: BOBO 3 kb3 Triage Assessment: 17:35 The onset of the patients symptoms was at an unknown time. General: Appears in no kb3 apparent distress. ill, slender, Behavior is calm, cooperative. Pain: Denies pain. Neuro: Reports weakness. Historical: - Allergies: 17:35 Sulfa (Sulfonamide Antibiotics); kb3 - PMHx: 17:35 Lymphoma; Bone marrow transplant; Scleraderma; Collapsed lung; Hypercholesterolemia; kb3 Hypertensive disorder; - PSHx: 17:35 Tonsillectomy; Cholecystectomy; kb3 - Immunization history:: Adult Immunizations up to date, Client reports receiving the 2nd dose of the Covid vaccine. - Social history:: Smoking status: Patient denies any tobacco usage or history of. - Family history:: not pertinent. Screenin:[facility] ED Fall Risk Assessment (Adult) History of falling in the last 3 months, hb including since admission No falls in past 3 months (0 pts) Confusion or Disorientation No (0 pts) Intoxicated or Sedated No (0 pts) Impaired Gait No (0 pts) Mobility Assist Device Used No (0 pt) Altered Elimination No (0 pt) Score/Fall Risk Level 0 - 2 = Low Risk Oriented to surroundings, Maintained a safe environment. Abuse screen: Denies threats or abuse. Denies injuries from another. Nutritional screening: No deficits noted. Tuberculosis screening: No symptoms or risk factors identified. Fall Risk Total Coleman Fall Scale indicates No Risk (0-24 pts). Assessment: 18:00 General: Appears in no apparent distress. Behavior is calm, cooperative. Pain: Denies hb pain. Neuro: Level of Consciousness is awake, alert, obeys commands, Oriented to person, place, time, situation. Cardiovascular: Patient's skin is warm and dry. Respiratory: Respiratory effort is even, unlabored, Respiratory pattern is regular, symmetrical. GI: No signs and/or symptoms were reported involving the gastrointestinal system. : No signs and/or symptoms were reported regarding the genitourinary system. EENT: No signs and/or symptoms were reported regarding the EENT system. Derm: Skin is dry, Skin is pink, warm \T\ dry. Musculoskeletal: No signs and/or symptoms reported regarding the musculoskeletal system. 19:20 General: Appears comfortable, Behavior is calm, cooperative. Pain: Denies pain. Neuro: ha1 Level of Consciousness is awake, alert, obeys commands, Oriented to person, place, time, situation. Cardiovascular: Patient's skin is warm and dry. Respiratory: Respiratory effort is even, unlabored, Respiratory pattern is regular, symmetrical. GI: Abdomen is flat, non-distended, Bowel sounds present X 4 quads. Abd is soft and non tender X 4 quads. Reports diarrhea, vomiting. : No signs and/or symptoms were reported regarding the genitourinary system. : No deficits noted. No signs and/or symptoms were reported regarding the genitourinary system. Derm: Skin is pink, warm \T\ dry. Musculoskeletal: Circulation, motion, and sensation intact. Capillary refill < 3 seconds, Range of motion: intact in all extremities. 20:20 Reassessment: Patient and/or family updated on plan of care and expected duration. Pain ha1 level reassessed. Patient is alert, oriented x 3, equal unlabored respirations, skin warm/dry/pink. Patient denies pain at this time. 22:20 Reassessment: Patient and/or family updated on plan of care and expected duration. Pain ha1 level reassessed. Patient is alert, oriented x 3, equal unlabored respirations, skin warm/dry/pink. Patient denies pain at this time. 23:20 Reassessment: Patient and/or family updated on plan of care and expected duration. Pain ha1 level reassessed. Patient is alert, oriented x 3, equal unlabored respirations, skin warm/dry/pink. Patient denies pain at this time. Vital Signs: 17:32 BP 134 / 82; Pulse 93; Resp 20; Temp 98.1; Pulse Ox 93% ; Weight 58.97 kg; Height 5 ft. kb3 7 in. (170.18 cm); Pain 0/10; 18:38 BP 123 / 73; Pulse 85; Resp 15; Pulse Ox 99% on R/A; hb 19:20 BP 121 / 75; Pulse 82; Resp 18 S; Pulse Ox 98% on R/A; ha1 20:20 BP 122 / 76; Pulse 82; Resp 18 S; Pulse Ox 98% on R/A; ha1 22:20 BP 124 / 78; Pulse 85; Resp 16 S; Pulse Ox 98% on R/A; ha1 23:20 BP 125 / 76; Pulse 85; Resp 18 S; Pulse Ox 98% on R/A; ha1 17:32 Body Mass Index 20.36 (58.97 kg, 170.18 cm) kb3 ED Course: 17:20 Patient arrived in ED. rg4 17:20 Pan Hunter MD is Attending Physician. rt 17:25 Joya Rao, RN is Primary Nurse. hb 17:35 Triage completed. kb3 17:35 Arm band placed on right wrist. Patient placed in an exam room, on a stretcher. kb3 17:36 Joya Rao, RN is Primary Nurse. hb 17:59 Patient has correct armband on for positive identification. hb 17:59 Inserted saline lock: 20 gauge in right antecubital area, using aseptic technique. hb Blood collected. 18:28 Chest Single View XRAY In Process Unspecified. EDMS 19:10 CT Abd/Pelvis - IV Contrast Only In Process Unspecified. EDMS 19:12 Attending Physician role handed off by Pan Hunter MD mayte 19:12 Modesto Carlton MD is Attending Physician. mayte 19:34 Jake Bueno MD is Hospitalizing Provider. mayte 19:46 CT Chest Wo Con In Process Unspecified. EDMS 23:55 No provider procedures requiring assistance completed. Patient admitted, IV remains in ha1 place. Administered Medications: 17:58 Drug: NS 0.9% 1000 ml Route: IV; Rate: 1 bolus; Site: right antecubital; hb 18:55 Follow up: Response: No adverse reaction; IV Status: Completed infusion; IV Intake: hb 1000ml 18:54 Drug: NS 0.9% 1000 ml Route: IV; Rate: 1 bolus; Site: right antecubital; hb 19:45 Follow up: Response: No adverse reaction; IV Status: Infusion continued; IV Intake: hb 1000ml 20:05 Drug: Pepcid (famotidine) 20 mg Route: IVP; Site: right antecubital; hb 22:11 Follow up: Response: No adverse reaction ha1 23:54 Follow up: Response: No adverse reaction ha1 20:06 Drug: levofloxacin 500 mg Volume: 100 ml; Route: IVPB; Infused Over: 60 mins; Site: hb right antecubital; 23:55 Follow up: Response: No adverse reaction; IV Status: Completed infusion; IV Intake: ha1 100ml 22:11 Drug: NS 0.9% 1000 ml Route: IV; Rate: 1 bolus; Site: right antecubital; ha1 23:54 Follow up: Response: No adverse reaction; IV Status: Completed infusion; IV Intake: ha1 1000ml 22:11 Drug: Zosyn (piperacillin-tazobactam) 3.375 grams Route: IVPB; Infused Over: 60 mins; ha1 Site: right antecubital; 23:54 Follow up: Response: No adverse reaction; IV Status: Infusion continued; IV Intake: 50slrs1 22:11 Drug: Xopenex (levalbuterol) 2.5 mg Route: Inhalation; ha1 23:53 Follow up: Response: No adverse reaction ha1 Medication: 18:00 VIS not applicable for this client. hb Intake: 18:55 IV: 1000ml; Total: 1000ml. hb 19:45 IV: 1000ml; Total: 2000ml. hb 23:54 IV: 50ml; Total: 2050ml. ha1 23:54 IV: 1000ml; Total: 3050ml. ha1 23:55 IV: 100ml; Total: 3150ml. ha1 Outcome: 19:35 Decision to Hospitalize by Provider. mayte 23:56 Admitted to Med/surg accompanied by nurse, via wheelchair, room 224, with chart, Report ha1 called to LUIS Martin 23:56 Condition: stable 23:56 Patient left the ED. ha1 Signatures: Dispatcher [employer] EDModesto Thomson MD MD cha Baxter, Heather, RN Lali Currie rg4 Aysha De Leon RN RN ha1 Chioma Pichardo RN RN kb3 Pan Hunter MD MD rt
[2022-11-13] MEDS ORDERED: Levofloxacin500mg IV 500 MG/100 ML BAG IV ONE (19:46)
[2022-11-13] MEDS ORDERED: FAMOTIDINE 20 MG/2 ML VIAL IV ONE (19:46)
--- NOTE | 2022-11-13 20:07 | RAD REPORT ---
EXAM DESCRIPTION: CT - Thorax Wo Con CLINICAL HISTORY: Chest pain Dyspnea, chronic, chest wall or pleura disease suspected COMPARISON: Thorax Wo Con dated 08/26/2022 FINDINGS: There is a large area of lung consolidation with endobronchial plugging present. This invo lves predominantly the left lower lobe posteriorly is a new finding since 08/26/2022. Most likely, th is represents an area infiltrate/pneumonia. Trace left pleural effusion. Right lung is clear. No pneu mothorax. No axillary, mediastinal or hilar adenopathy. No concerning bony finding. All CT scans are performed using dose optimization technique as appropriate and may include automated exposure control or mA/KV adjustment according to patient size. IMPRESSION: Large area of lung consolidation is seen with areas of endobronchial plugging.This invol ve predominate the left lung base posteriorly and has subtle areas of internal necrosis. This is most compatible with pneumonia.
--- NOTE | 2022-11-13 20:10 | P.HP ---
Certification for Inpatient Patient admitted to: Inpatient With expected LOS: >2 Midnights Patient will require the following post-hospital care: None Practitioner: I am a practitioner with admitting privileges, knowledge of patient current condition, hospital course, and medical plan of care. 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 She reports that she was diagnosed with a sinus infection 1 week ago and was started on augmentin. Since then, she has had nausea, vomiting, and diarrhea. She is still experiencing some cough and congestion. Her labs today are significant for WBC 19, BUN 29, AST 44, ALT 59, lipase 408. COVID/flu negative. CT abdomen pelvis showed "mild liver cirrhosis." CT chest showed "Large area of lung consolidation is seen with areas of endobronchial plugging.This involves predominate the left lung base posteriorly and has subtle areas of internal necrosis. This is most compatible with pneumonia." She was given IV fluids in the ED as well as zosyn and breathing treatments for the pneumonia. Her vital signs have been stable, O2 satisfactory on room air. Patient will be admitted for further management. Allergies Sulfa (Sulfonamide Antibiotics) Allergy (Verified 12/26/19 19:54) Itching/Hives/Rash Home medications list reviewed: Yes Home Medications: Amlodipine Besylate 1 tab PO BID 12/26/19 Levothyroxine [Synthroid*] 50 mcg PO DAILY 12/26/19 Pantoprazole Sodium 40 mg PO DAILY 12/26/19 gemfibroziL [Gemfibrozil] 1 tab PO BID 12/26/19 - Past Medical/Surgical History Diabetic: No -: Hypertension -: High Cholesterol -: Non-Hodgkins Lymphoma -: DVT -: Factor V -: Pneumothorax (left) -: Hypothyroidism -: Bone Marrow Transplant -: Porthacath -: Cholecystectomy Psychosocial/ Personal History: Patient is . - Family History Father -: Hypertension, Cancer Mother -: Hypertension, Cancer - Social History Smoking Status: Never smoker Alcohol use: Yes CD- Drugs: No Caffeine use: Yes Place of Residence: Home Review of Systems General: Weakness, Malaise Gastrointestinal: Nausea, Vomiting, Diarrhea Physical Examination - Vital Signs Temperature: 98.1 F Blood Pressure: 123/73 Pulse: 85 Respirations: 15 Pulse Ox (%): 99 (room air) - Physical Exam General: Alert, In no apparent distress HEENT: Atraumatic, PERRLA, EOMI, Sclerae nonicteric Neck: Supple, 2+ carotid pulse no bruit, No LAD, Without JVD or thyroid abnormality Respiratory: Clear to auscultation bilaterally, Normal air movement Cardiovascular: Regular rate/rhythm, Normal S1 S2 Gastrointestinal: Normal bowel sounds, No tenderness Musculoskeletal: No tenderness Integumentary: No rashes Neurological: Normal speech, Normal strength at 5/5 x4 extr, Normal tone, Normal affect - Studies Laboratory Data (last 24 hrs) 11/13/22 17:44: Sodium 133 L, Potassium 3.5, BUN 29 H, Creatinine 0.88, Glucose 177 H, Magnesium 2.1, Total Bilirubin 0.9, AST 44 H, ALT 59 H, Alkaline Phosphatase 80, Lipase 408 H 11/13/22 17:44: WBC 19.30 H, Hgb 12.2, Hct 35.3 L, Plt Count 188 Assessment and Plan - Problems (Diagnosis) (1) Pneumonia Current Visit: Yes Status: Acute Qualifiers: Pneumonia type: due to unspecified organism Laterality: left Lung location: lower lobe of lung Qualified Code(s): J18.9 - Pneumonia, unspecified organism (2) Dehydration Current Visit: Yes Status: Acute (3) Hypertension Current Visit: Yes Status: Chronic Qualifiers: Hypertension type: primary hypertension Qualified Code(s): I10 - Essential (primary) hypertension (4) Hyperlipidemia Current Visit: Yes Status: Chronic Qualifiers: Hyperlipidemia type: unspecified Qualified Code(s): E78.5 - Hyperlipidemia, unspecified - Plan Admit patient to hospital for further evaluation and management of pneumonia. IV cefepime, IV fluids, incentive spirometry, and breathing treatments as needed. Pulmonology consulted. Sputum culture. Nausea/vomiting/diarrhea likely reaction to Augmentin. CT abdomen pelvis without abnormalities. Monitor and replete electrolytes per protocol. Reconcile and continue home medications. Lovenox for VTE prophylaxis. Full code. Discharge Plan: Home Plan to discharge in: Greater than 2 days - Advance Directives Does patient have a Living Will: Yes Does patient have a Durable POA for Healthcare: Yes - Code Status/Comfort Care Code Status Assessed: Yes Code Status: Full Code Physician Review: Patient Assessed, Agree with Above Assessment and Plan Critical Care: No Time Spent Managing Pts Care (In Minutes): 50
[2022-11-13 20:20] LABS: Protime INR 1.46
[2022-11-13 20:36] LABS: Albumin 2.1 g/dL (3.4-5.0); Bilirubin Direct 0.4 mg/dL (0-0.2); Bilirubin Total 0.8 mg/dL (0.2-1.0); Potassium 3.1 mmol/L (3.5-5.1); Protein, Total 6.8 g/dL (6.4-8.2); Troponin High Sensitivity 6.8 pg/mL (<58.9)
[2022-11-13 21:37] LABS: SARS-COV-2 RT PCR NEGATIVE (NEGATIVE)
[2022-11-13] MEDS ORDERED: PIPERACIL/TAZO 3.375 GM VIAL IV ONE (22:02)
[2022-11-13] MEDS ORDERED: NA CHLORIDE 0.9% 100 ML IV ONE (22:02)
[2022-11-13] MEDS ORDERED: LEVALBUTEROL 1.25 MG/3 ML NEB ONE (22:02)
[2022-11-13] MEDS ORDERED: ALBUTEROL 2.5 MG/3 ML NEB SOL NEB PRN (22:25)
[2022-11-13] MEDS: NS KCL 20MEQ 20 MEQ/1,000 ML BAG IV SCH (22:25)
[2022-11-13 23:57] VITALS: BMI 21.3
[2022-11-14] MEDS: BENZONATATE 100 MG CAP PO PRN ×3 (00:06→15:35)
[2022-11-14] MEDS: NS KCL 20MEQ 20 MEQ/1,000 ML BAG IV SCH ×2 (00:06→13:35)
[2022-11-14] MEDS ORDERED: POTASSIUM 25 MEQ EFFERV TAB PO ONE ×2 (00:15→09:00)
[2022-11-14 00:45] LABS: Urine Bacteria <20 /HPF (<20); Urine Mucus Slight /HPF (None Seen); Urine RBC <5 /HPF (None Seen)
[2022-11-14 02:03] LABS: Specific Gravity 1.029 (1.005-1.030); Urine Bacteria <20 /HPF (<20); Urine Bilirubin NEGATIVE (Negative); Urine Blood Negative (Negative); Urine Clarity Clear (Clear); Urine Color Light-Yellow (Yellow); Urine Glucose NEGATIVE (Negative); Urine Mucus Slight /HPF (None Seen); Urine Protein TRACE (Negative); Urine RBC <5 /HPF (None Seen); Urine Urobilinogen Normal (Normal)
[2022-11-14 03:43] LABS: Absolute Lymphocytes (CBC) 0.7 K/uL (0.7-4.9); Hematocrit 32.1 % (36.0-45.0); Lymphocytes % 3.3 % (15.3-44.8); MCV 97.6 fL (80-100); MPV 7.6 fL (7.6-11.3); RBC Red Blood Cell Count 3.29 M/uL (3.86-4.86)
[2022-11-14 03:58] LABS: Magnesium 1.9 mg/dL (1.6-2.4); Potassium 3.8 mmol/L (3.5-5.1)
[2022-11-14 04:08] LABS: Blood Morphology Comment NOT SEEN (NOT SEEN); Platelet Estimate ADEQ
[2022-11-14] MEDS: POTASS/SODIUM PHOSPHATE 1 PKT POWD.PACK PO SCH ×2 (06:37→08:18)
[2022-11-14] MEDS: ENOXAPARIN 40 MG/0.4 ML SQ SCH (08:19)
[2022-11-14] MEDS: CEFEPIME 1 GM in NA CHLORIDE 0.9% 100 ML IV SCH (08:19)
[2022-11-14] MEDS ORDERED: ALBUTEROL 2.5 MG/3 ML NEB SOL NEB PRN (12:00)
--- NOTE | 2022-11-14 12:28 | P.PN ---
Subjective Date of Service: 11/14/22 Primary Care Provider: Michael Chief Complaint: Pneumonia Patient states she feels better than yesterday. She has been afebrile. She report poor appetite. No nausea or vomiting. Physical Examination - Vital Signs Temperature: 99.2 F Blood Pressure: 98/56 Pulse: 82 Respirations: 16 Pulse Ox (%): 94 - Studies Laboratory Data (last 24 hrs) 11/13/22 20:01: PT 16.1 H, INR 1.46 11/13/22 20:01: Sodium 131 L, Potassium 3.1 L, BUN 24 H, Creatinine 0.79, Glucose 199 H, Total Bilirubin 0.8, AST 40 H, ALT 53, Alkaline Phosphatase 74 11/13/22 17:44: Sodium 133 L, Potassium 3.5, BUN 29 H, Creatinine 0.88, Glucose 177 H, Magnesium 2.1, Total Bilirubin 0.9, AST 44 H, ALT 59 H, Alkaline Phosphatase 80, Lipase 408 H 11/13/22 17:44: WBC 19.30 H, Hgb 12.2, Hct 35.3 L, Plt Count 188 Assessment And Plan - Current Problems (Diagnosis) (1) Pneumonia Current Visit: Yes Status: Acute Qualifiers: Pneumonia type: due to unspecified organism Laterality: left Lung location: lower lobe of lung Qualified Code(s): J18.9 - Pneumonia, unspecified organism (2) History of lymphoma Current Visit: Yes Status: Acute (3) History of pneumonectomy Current Visit: Yes Status: Acute (4) Hyperlipidemia Current Visit: Yes Status: Chronic Qualifiers: Hyperlipidemia type: unspecified Qualified Code(s): E78.5 - Hyperlipidemia, unspecified (5) Hypertension Current Visit: Yes Status: Chronic Qualifiers: Hypertension type: primary hypertension Qualified Code(s): I10 - Essential (primary) hypertension - Plan Physical Exam General: Alert, In no apparent distress Neck: Supple, JVD is not distended. Respiratory: Clear to auscultation bilaterally, diminished breath sounds on the left. Cardiovascular: Regular rate/rhythm, Normal S1 S2 Gastrointestinal: Normal bowel sounds, No tenderness Musculoskeletal: No tenderness Integumentary: No rashes Neurological: Normal speech, Normal strength at 5/5 x4 extr, Normal tone, Normal affect Plan: Patient with leukocytosis. She did not meet criteria for sepsis. Continue IV cefepime, add azithromycin Follow blood cultures. Monitor CBC to follow leukocytosis. Incentive spirometer Chest physiotherapy. She is stable on room air Activity as tolerated Encourage oral intake. Hold antihypertensives due to borderline hypotension.
[2022-11-14] MEDS ORDERED: ACETAMINOPHEN 500 MG TAB PO PRN (20:15)
[2022-11-15] MEDS: NS KCL 20MEQ 20 MEQ/1,000 ML BAG IV SCH ×3 (01:05→17:46)
[2022-11-15] MEDS: BENZONATATE 100 MG CAP PO PRN ×2 (01:22→15:18)
[2022-11-15 04:12] LABS: Absolute Lymphocytes (CBC) 1.1 K/uL (0.7-4.9); Hematocrit 32.3 % (36.0-45.0); Lymphocytes % 7.2 % (15.3-44.8); MCV 99.1 fL (80-100); MPV 7.8 fL (7.6-11.3); RBC Red Blood Cell Count 3.26 M/uL (3.86-4.86)
[2022-11-15 04:27] LABS: Phosphorus 2.3 mg/dL (2.5-4.9); Potassium 3.7 mmol/L (3.5-5.1)
[2022-11-15] MEDS: POTASS/SODIUM PHOSPHATE 1 PKT POWD.PACK PO SCH ×3 (05:34→08:47)
[2022-11-15 08:32] LABS: C.diff Antigen/Toxin Ag neg : Tox neg (NEG : NEG)
[2022-11-15] MEDS: CEFEPIME 1 GM in NA CHLORIDE 0.9% 100 ML IV SCH (08:47)
[2022-11-15] MEDS: ENOXAPARIN 40 MG/0.4 ML SQ SCH (08:47)
[2022-11-15] MEDS ORDERED: POTASSIUM 25 MEQ EFFERV TAB PO ONE (09:00)
--- NOTE | 2022-11-15 14:06 | P.PN ---
Subjective Date of Service: 11/15/22 Primary Care Provider: Michael Chief Complaint: Pneumonia Patient has no new complaint. She has been afebrile. She is ambulatory without oxygen. She denies any chest pain. Physical Examination - Vital Signs Temperature: 98.9 F Blood Pressure: 120/72 Pulse: 89 Respirations: 18 Pulse Ox (%): 93 Assessment And Plan - Current Problems (Diagnosis) (1) Pneumonia Current Visit: Yes Status: Acute Qualifiers: Pneumonia type: due to unspecified organism Laterality: left Lung location: lower lobe of lung Qualified Code(s): J18.9 - Pneumonia, unspecified organism (2) History of lymphoma Current Visit: Yes Status: Acute (3) History of pneumonectomy Current Visit: Yes Status: Acute (4) Hyperlipidemia Current Visit: Yes Status: Chronic Qualifiers: Hyperlipidemia type: unspecified Qualified Code(s): E78.5 - Hyperlipidemia, unspecified (5) Hypertension Current Visit: Yes Status: Chronic Qualifiers: Hypertension type: primary hypertension Qualified Code(s): I10 - Essential (primary) hypertension - Plan Physical Exam General: Alert, In no apparent distress Neck: Supple, JVD is not distended. Respiratory: Clear to auscultation bilaterally, diminished breath sounds on the left. Cardiovascular: Regular rate/rhythm, Normal S1 S2 Gastrointestinal: Normal bowel sounds, No tenderness Musculoskeletal: No tenderness Integumentary: No rashes Neurological: Normal speech, Normal strength at 5/5 x4 extr, Normal tone, Normal affect Plan: Leukocytosis is improving Continue IV cefepime, add azithromycin Follow blood cultures. Monitor CBC to follow leukocytosis. Incentive spirometer Bronchodilators as needed Chest physiotherapy. She is stable on room air Activity as tolerated Encourage oral intake. Continue to hold antihypertensives due to low normal to normal BP. Physician Review: Patient Assessed, Agree with Above Assessment and Plan
--- NOTE | 2022-11-15 15:55 | EKG ---
Test Date: 2022-11-13 Test Time: 17:50:27 Graphic Coordinator: HB MEASUREMENT RESULTS: Intervals: Rate: 88 OK: 178 QRSD: 118 QT: 360 QTc: 435 [place]: P: 73 OK: 178 QRS: -42 T: 92 INTERPRETIVE STATEMENTS: Normal sinus rhythm Left axis deviation Septal infarct, age undetermined Abnormal ECG Compared to ECG 10/05/2003 11:43:00 Left-axis deviation now present Myocardial infarct finding now present ST (T wave) deviation no longer present Possible ischemia no longer present Electronically Signed On 11-15-22 15:54:37 [employer]ITION[employer] HEALTH COACH by Nacho De La Vega
[2022-11-15] MEDS: AZITHROMYCIN 250 MG TAB PO SCH (17:46)
[2022-11-15] MEDS: LOPERAMIDE HCL 2 MG CAPSULE PO PRN (17:46)
[2022-11-15] MEDS ORDERED: ZOLPIDEM TARTRATE 5 MG TABLET PO PRN (20:47)
[2022-11-16] MEDS: BENZONATATE 100 MG CAP PO PRN (00:08)
[2022-11-16 04:32] LABS: Absolute Lymphocytes (CBC) 1.1 K/uL (0.7-4.9); Hematocrit 33.6 % (36.0-45.0); Lymphocytes % 5.9 % (15.3-44.8); MCV 98.4 fL (80-100); MPV 7.5 fL (7.6-11.3); RBC Red Blood Cell Count 3.41 M/uL (3.86-4.86)
[2022-11-16 04:45] LABS: Phosphorus 2.6 mg/dL (2.5-4.9); Potassium 3.4 mmol/L (3.5-5.1)
[2022-11-16 05:22] LABS: Blood Morphology Comment NOT SEEN (NOT SEEN); Platelet Estimate ADEQ
[2022-11-16] MEDS: ENOXAPARIN 40 MG/0.4 ML SQ SCH (08:15)
[2022-11-16] MEDS: AZITHROMYCIN 250 MG TAB PO SCH (08:15)
[2022-11-16] MEDS: CEFEPIME 1 GM in NA CHLORIDE 0.9% 100 ML IV SCH (08:15)
[2022-11-16] MEDS: NS KCL 20MEQ 20 MEQ/1,000 ML BAG IV SCH (08:21)
[2022-11-16] MEDS: LOPERAMIDE HCL 2 MG CAPSULE PO PRN (08:21)
[2022-11-16 08:27] VITALS: BP 127/73; TEMP 98.7
[2022-11-16 08:59] VITALS: O2SAT 92
[2022-11-16] MEDS ORDERED: AZITHROMYCIN 250 MG TAB PO SCH (09:00)
[2022-11-16] MEDS ORDERED: POTASSIUM CL SA 10 MEQ TAB PO ONE (09:00)
--- NOTE | 2022-11-16 09:22 | P.DS ---
Admission Date: 11/13/22 Discharge Date: 11/16/22 Primary Care Provider: Michael Disposition: ROUTINE DISCHARGE Discharge Condition: FAIR Reason for Admission: Pneumonia - Problems (1) Pneumonia Status: Acute Qualifiers: Pneumonia type: due to unspecified organism Laterality: left Lung location: lower lobe of lung Qualified Code(s): J18.9 - Pneumonia, unspecified organism (2) History of lymphoma Status: Acute (3) History of pneumonectomy Status: Acute (4) Hyperlipidemia Status: Chronic Qualifiers: Hyperlipidemia type: unspecified Qualified Code(s): E78.5 - Hyperlipidemia, unspecified (5) Hypertension Status: Chronic Qualifiers: Hypertension type: primary hypertension Qualified Code(s): I10 - Essential (primary) hypertension Brief History of Present Illness: Patient is a 77 year old female with past medical history of hypertension, hypothyroidism, mixed hyperlipidemia, gastroesophageal reflux disease, and lymphoma (status post chemotherapy 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 She reports that she was diagnosed with a sinus infection 1 week ago and was started on augmentin. She later developed nausea, vomiting, and diarrhea. She was still experiencing some cough and congestion. Her labs today are significant for WBC 19, BUN 29, AST 44, ALT 59, lipase 408. COVID/flu negative. CT abdomen pelvis showed "mild liver cirrhosis." CT chest showed "Large area of lung consolidation is seen with areas of endobronchial plugging.This involves predominate the left lung base posteriorly and has subtle areas of internal necrosis. This is most compatible with pneumonia." She was given IV fluids in the ED as well as zosyn and breathing treatments for the pneumonia. Her vital signs have been stable, O2 satisfactory on room air. Patient was admitted for further management Hospital Course: Patient admitted to the medical floor and started on aggressive antibiotic therapy. Her leukocytosis remained unchanged despite significant improvement in his symptoms and overall clinical picture. Patient states she feels like baseline but her clinical improvement did not reflect in her CBC values. Blood cultures yielded no growth. Sputum culture was unremarkable, patient was hardly bringing out any sputum. She was afebrile throughout the hospital stay, ambulatory and tolerated diet. She was stable on room air and did not require oxygen supplementation. Patient has clinically improved and request to go home. She is discharged per her request to follow-up with her PCP within 1 week. She is informed to return to the ED if she feels worse or develops shortness of breath. She will need repeat imaging within 1 month to assess for resolution of the left lower lobe consolidation. Vital Signs/Physical Exam: Temp Pulse Resp BP Pulse Ox 98.7 F 90 16 127/73 92 11/16/22 08:00 11/16/22 08:00 11/16/22 08:00 11/16/22 08:00 11/16/22 08:00 General: Alert, In no apparent distress, Oriented x3 HEENT: Mucous membr. moist/pink Neck: Supple, JVD not distended Respiratory: Clear to auscultation bilaterally, Other (No crackles or wheezes) Cardiovascular: No edema, Regular rate/rhythm, Normal S1 S2 Gastrointestinal: Normal bowel sounds, Soft and benign, Non-distended, No tenderness Musculoskeletal: No swelling Integumentary: No rashes, No cyanosis Neurological: Normal strength at 5/5 x4 extr Laboratory Data at Discharge: WBC 19.00 K/uL (4.3-10.9) H 11/16/22 03:35 Hgb 11.5 g/dL (12.0-15.0) L 11/16/22 03:35 Hct 33.6 % (36.0-45.0) L 11/16/22 03:35 Plt Count 170 K/uL (152-406) 11/16/22 03:35 PT 16.1 SECONDS (9.5-12.5) H 11/13/22 20:01 INR 1.46 11/13/22 20:01 Sodium 136 mmol/L (136-145) 11/16/22 03:35 Potassium 3.4 mmol/L (3.5-5.1) L 11/16/22 03:35 BUN 8 mg/dL (7-18) 11/16/22 03:35 Creatinine 0.52 mg/dL (0.55-1.02) L 11/16/22 03:35 Glucose 146 mg/dL (74-106) H 11/16/22 03:35 Phosphorus 2.6 mg/dL (2.5-4.9) 11/16/22 03:35 Magnesium 1.8 mg/dL (1.6-2.4) 11/16/22 03:35 Total Bilirubin 0.8 mg/dL (0.2-1.0) 11/13/22 20:01 AST 40 U/L (15-37) H 11/13/22 20:01 ALT 53 U/L (13-56) 11/13/22 20:01 Alkaline Phosphatase 74 U/L (45-117) 11/13/22 20:01 Triglycerides 166 mg/dL (<150) H 11/14/22 03:17 Cholesterol 71 mg/dL (<200) 11/14/22 03:17 HDL Cholesterol 13 mg/dL (40-60) L 11/14/22 03:17 Cholesterol/HDL Ratio 5.46 11/14/22 03:17 Lipase 408 U/L (73-393) H 11/13/22 17:44 Home Medications: Amlodipine Besylate 5 mg PO BID 11/14/22 Levothyroxine Sodium [Levothyroxine] 50 mcg PO DAILY 11/14/22 Rosuvastatin Calcium 5 mg PO DAILY AT SUPPER 11/14/22 carvediloL [Carvedilol] 6.25 mg PO BID 11/14/22 gemfibroziL [Gemfibrozil] 600 mg PO BID 11/14/22 Azithromycin [Zithromax] 500 mg PO DAILY #5 tab 11/16/22 Benzonatate [Tessalon Perle*] 100 mg PO TID PRN #30 cap 11/16/22 Cefuroxime Axetil [Cefuroxime] 500 mg PO BID #20 tab 11/16/22 Loperamide [Imodium*] 2 mg PO Q4H PRN #15 cap 11/16/22 New Medications: Cefuroxime Axetil [Cefuroxime] 500 mg PO BID #20 tab Loperamide [Imodium*] 2 mg PO Q4H PRN #15 cap PRN Reason: Diarrhea Benzonatate [Tessalon Perle*] 100 mg PO TID PRN #30 cap PRN Reason: Cough Azithromycin [Zithromax] 500 mg PO DAILY #5 tab Diet: AHA Activity: Ad jaky Followup: Edy Rodriguez MD [Primary Care Provider] - 1 Week Time spent managing pt's care (in minutes): 34
== END 2022-11-16 10:45 | disposition home or self-care (01) | DRG 194 ==
LOC: ER 17:16 → ERHOLD 20:03 → 2ND 21:56
PROVIDERS: ADMIT Internal Medicine; ATTEND Internal Medicine
DX: J18.9 Pneumonia, unspecified organism (principal); Z94.81 Bone marrow transplant status; I10 Essential (primary) hypertension; E03.9 Hypothyroidism, unspecified; K21.9 Gastro-esophageal reflux disease without esophagitis; E86.0 Dehydration; E78.5 Hyperlipidemia, unspecified; Z88.1 Allergy status to other antibiotic agents; Z90.2 Acquired absence of lung [part of]; Z90.49 Acquired absence of other specified parts of digestive tract; Z92.21 Personal history of antineoplastic chemotherapy; Z85.72 Personal history of non-Hodgkin lymphomas; Z79.890 Hormone replacement therapy; Z79.899 Other long term (current) drug therapy; Z20.822 Contact with and (suspected) exposure to COVID-19
CPT/HCPCS: 0240U; 36415; 71045; 71250; 74177; 80048; 80053; 80061; 80076; 81001; 81015; 83605; 83690; 83735; 83880; 84100; 84443; 84484; 85025; 85610; 87040; 87045; 87046; 87070; 87086; 87088; 87205; 87324; 87425; 89055; 93005; 94010; 94760; 96361; 96365; 96366; 96375; 97116; 97161; 97530; 99285; J0692; J1650; J2543; J3480; J7030; J7614; Q0144; Q9967